=== PATIENT | female | born 1960 | race Caucasian/White ===

== ENCOUNTER 2024-10-31 19:53 | Observation (INO) | payer OTHER, SELFPAY ==
[2024-10-31 15:28] VITALS: BP 137/92
[2024-10-31 15:50] LABS: % Basophils 0.6 % (0-2); % Eosinophils 2.5 % (0-6); % Immature Granulocytes 0.3 % (0-0.5); % Monocytes 7.1 % (1.7-9.3); % Neutrophils 58.5 % (42.2-75.2); Absolute Basophils 0.1 10^3/uL (0-0.2); Absolute Eosinophils 0.4 10^3/uL (0-0.7); Absolute Lymphocytes 4.5 10^3/uL (1.2-3.4); Absolute Neutrophils 8.5 10^3/uL (1.4-6.5); Hematocrit 41.5 % (37.0-47.0); Hemoglobin 14.5 g/dL (12.0-16.0); Mean Corp Hgb Conc. 34.9 g/dL (33.0-37.0); Mean Corpuscular Hgb 29.2 pg (27.0-31.0); Mean Corpuscular Volume 83.7 fL (81.0-99.0); Mean Platelet Volume 10.1 fL (7.4-10.4); Nucleated Red Blood Cells % 0 %; Platelet Count 304 10^3/uL (130-400); Red Blood Cell Count 4.96 10^6/uL (4.20-5.40); Red Cell Dist. Width 12.3 % (11.5-14.5); White Blood Cell Count 14.6 10^3/uL (4.8-10.8)
[2024-10-31 16:05] LABS: ALT (SGPT) 22 U/L (0-35); AST (SGOT) 26 U/L (14-36); Alkaline Phosphatase 68 U/L (38-126); Blood Urea Nitrogen 25 mg/dl (7-17); Calcium 9.9 mg/dl (8.4-10.2); Carbon Dioxide 21 mmol/L (22-30); Chloride 106 mmol/L (98-107); Glucose 122 mg/dl (70-99); Potassium 4.5 mmol/L (3.5-5.1); Sodium 139 mmol/L (135-145); Total Bilirubin 0.6 mg/dl (0.2-1.3); Total Protein 7.9 g/dl (6.3-8.2); eGFR > 60.00
[2024-10-31 18:01] VITALS: BMI 31.9
[2024-10-31 18:04] VITALS: BP 155/75
--- NOTE | 2024-10-31 18:48 | ED.GENMED ---
History of Present Illness
General
Chief Complaint: Visual Problem
Source: patient
Exam Limitations: none
Time Seen by Provider: 10/31/24 17:49
Nursing documentation reviewed up to this point in time: agreed with
History of Present Illness
History of Present Illness:
The patient is a 64-year-old female who presented with a visual disturbance. She reported that while reading late at night, she suddenly observed a 'weird spot' in her vision. The symptom onset was described to occur around midnight. Initially
self-managed with Restasis eye drops due to a history of dry eyes, there was no significant relief over the weekend. The patient noticed a persistent carrero spot in her vision, prompting a visit to the human service coordinator, Dr. Perez, who identified a
need for further evaluation by a retina specialist. The patient subsequently consulted with Dr. Clifford Perdue, who conducted comprehensive testing. Dr. Perdue explained that while typically two primary arteries supply the retina, some
individuals, like the patient, have a third, thinner artery. In this artery, a small blockage or plaque was identified, possibly indicative of an 'eye stroke;' however, this was not deemed to immediately endanger her sight. Further investigation was
advised to rule out any larger systemic issues.
Past History
Past History
ED Past Medical History: None
ED Past Surgical History:
Social History
Tobacco: Non-smoker
Living: with family
Review of Systems
Review of Systems
Allergies reviewed?: Yes
All Other Systems: ROS reviewed and negative except as documented in HPI and ROS
Phy Exam
Physical Exam
Physical Exam:
GENERAL: Alert , in no apparent distress
EYE: pupils equal and reactive
NECK: Supple, no significant adenopathy.
ENT: o/p clr, mmm.
CARDIAC: Regular rate and rhythm .
LUNGS: Clear breath sounds bilaterally, no acute respiratory distress, no wheezes/rales/rhonchi
ABDOMEN: Soft, without focal tenderness, no r/g, no cvat
NEUROLOGICAL: Alert and oriented, no focal neuro deficits
SKIN: Warm and dry, skin intact.
MUSCULOSKELETAL: No edema, well perfused.
PSYCH: Normal and appropriate interaction.
5-5 upper and lower extremity strength normal sensation with palpating bilaterally normal finger-nose evaluation no pronator drift walk with steady gait
Course
Orders/Labs/Results
Orders:
Orders
10/31/24 15:36
EKG [Electrocardiogram (*1)] Stat
Reason for Study: TIA/Stroke
EKG- Treatment ONCE
10/31/24 15:42
Alcohol Stat
CBC/With Diff [Complete Blood Count/With Diff] Stat
Comprehensive Metabolic Panel Stat
Erythrocyte Sed Rate Stat
Comment: ADD ON
10/31/24 16:43
CT Head W/o Iv Contrast Stat
Comment:
Reason For Exam: vision change
10/31/24 19:03
CT Head & Neck Angio W/wo IV Urgent
Comment:
Reason For Exam: Possible retinal artery stroke
10/31/24 19:18
Aspirin 325 mg PO NOW STA
10/31/24 19:26
Admit/Transfer Patient As Directed
Co-Sign Provider:
Level of Care: Observation services
Assign to:: Medical/Surgical
Physician / Group: Amparo
Diagnosis: L. Branched Retinal artery occusion
Code Status As Directed
Resuscitation Status: Full Code
PRN Pain Medication Management As Directed
May give lesser potent ordered pain med per pt: Yes
preference::
Protocol:: Medication orders for pain may be administered in a
manner that supports deferring to patient preference
when the pt is:
- Requesting an ordered lesser potent pain medication.
Least to most potent pain medications are defined
as: acetaminophen < NSAID < tramadol < opioids
(morphine, oxycodone, hydromorphone).
- Requesting a lesser dose of the same medication IF
ORDERED.
- Requesting a less intrusive route of administration
if both routes are prescribed by the provider (PO <
IV).
10/31/24 19:29
Add On- LAB Stat
Tests Added?: ESR, A1c
10/31/24 19:43
PRN Pain Medication Management As Directed
May give lesser potent ordered pain med per pt: Yes
preference::
Protocol:: Medication orders for pain may be administered in a
manner that supports deferring to patient preference
when the pt is:
- Requesting an ordered lesser potent pain medication.
Least to most potent pain medications are defined
as: acetaminophen < NSAID < tramadol < opioids
(morphine, oxycodone, hydromorphone).
- Requesting a lesser dose of the same medication IF
ORDERED.
- Requesting a less intrusive route of administration
if both routes are prescribed by the provider (PO <
IV).
10/31/24 19:45
Lipid Profile [Cardiovascular Evaluation] Urgent
11/03/24 11:00
DC Protocol for Telemetry ONCE
Abnormal Lab Results
10/31/24
15:42
WBC 14.6 H 10^3/uL
(4.8-10.8)
Absolute Neuts (auto) 8.5 H 10^3/uL
(1.4-6.5)
Absolute Lymphs (auto) 4.5 H 10^3/uL
(1.2-3.4)
Absolute Monos (auto) 1.0 H 10^3/uL
(0.1-0.6)
Carbon Dioxide 21 L mmol/L
(22-30)
BUN 25 H mg/dl
(7-17)
Glucose 122 H mg/dl
(70-99)
10/31/24 15:42
10/31/24 15:42
Vital Signs
Initial and Last Documented VS:
Initial Vital Signs
Temp Pulse Resp BP Pulse Ox
98.9 F 95 18 137/92 97
10/31/24 15:28 10/31/24 15:28 10/31/24 15:28 10/31/24 15:28 10/31/24 15:28
Last Documented Vital Signs
Temp Pulse Resp BP Pulse Ox
98.6 F 77 20 155/75 98
10/31/24 18:04 10/31/24 18:04 10/31/24 18:04 10/31/24 18:04 10/31/24 18:04
MDM/Problems Addressed
MDM/Problems Addressed:
Consultation with the neurology team to determine further testing, including potential angiogram or ultrasound, to assess for any cerebrovascular risks and rule out a stroke.
*Critical Care Note
Total Time (30-74mins, 75-104mins- exclusive of procedures): Not Applicable
Update Note
Update Note:
10/31/24 - 19:[address] results are normal. However, further testing is necessary, including a CT angiogram and additional blood work, to evaluate any potential risks. The patient will likely be admitted to the hospital tonight for these tests. Neuro will
review the case tomorrow morning to determine safety for discharge and provide further recommendations.
ED Attending Note
-
Portions of this chart may have been created with voice recognition software.� Occasional wrong word or��sound alike� substitutions may have occurred due to the inherent limitations of voice recognition software.
Discharge Plan
Departure
Patient Disposition: Admit
Date of Disposition: 10/31/24
Time of Disposition: 19:55
Admit to: Telemetry
Admit to doctor: Amparo
Presentation/result/management discussed w/ accepting MD/DO: Hospitalist
Patient with high blood pressure during this ER visit?: No
Condition: Good
Covid-19: Not Applicable
Discharge Problem:
Acute retinal artery occlusion
Prescriptions:
No Action
lisinopril 20 mg Tablet
20 mg PO DAILY
loperamide 2 mg Tablet
2 mg PO DAILYPRN PRN (Reason: diarrhea)
cyanocobalamin (vitamin B-12) 1,000 mcg Tablet
1,000 mcg PO DAILY
potassium 99 mg Tablet
99 mg PO DAILY
ascorbic acid (vitamin C) [Vitamin C] 500 mg Tablet
500 mg PO DAILY
pyridoxine (vitamin B6) 50 mg Tablet
50 mg PO DAILY
cholecalciferol (vitamin D3) [Vitamin D3] 25 mcg (1,000 unit) Tablet
25 mcg PO DAILY
apple cider vinegar 300 mg Tablet
300 mg PO DAILY
[place] 3 Fish Oil 684-1,200 mg Capsule,Delayed Release(Dr/Ec)
1 cap PO DAILY
coQ10 (ubiquinol) 100 mg Capsule
100 mg PO DAILY
Referrals:
NONE,* [Family Provider, Internal Medicine]
Interventions
Interventions:
*Risk Screen - Suicide Last Done: 10/31/24 15:33
*General Assessment Last Done: 10/31/24 18:04
*Neglect/Abuse Screening Last Done: 10/31/24 15:33
*ED- Fall Risk Assessment Last Done: 10/31/24 18:04
*ED COVID-19 Vaccine History Last Done: 10/31/24 18:04
ED- Neurological Assessment Last Done: 10/31/24 18:04
ED-EENT Assessment Last Done: 10/31/24 18:04
ED Swallowing Screen Last Done: 10/31/24 18:04
Discharge Date and Time
Print Language: CHINESE
[2024-10-31] MEDS: ASPIRIN 325 MG PO (19:21)
--- NOTE | 2024-10-31 19:22 | HPS.HSE ---
Family Physician
-
Family Physician: * NONE
Chief Complaint
-
Left eye vision loss
History of Present Illness
This is a 64-year-old female with past medical history significant for hypertension, diet-controlled diabetes who presents to the emergency department from ophthalmology clinic for concern for retinal artery occlusion of the left eye.
Patient reports acute onset of small vision loss in the left eye slightly left of center. She described this as a carrero spot. She had no eye pain at that time. She denied having any headache. She had no other symptoms including double vision,
blurry vision, facial droop, aphasia, numbness tingling or weakness. This persisted and she had a visit to her street light cleaner on Tuesday. There there was finding concerning for vascular abnormalities and she was sent to retinal specialist. The
retinal specialist diagnosed a branch retinal artery occlusion (Hollenhorst plaque). Patient stated that Dysport has not changed and there has been no other visual on oral neurological deficits since.
In the emergency department patient was afebrile. Blood pressure was 155 with a pulse rate of 77 satting 98% on room air. ECG shows normal sinus rhythm without any acute ST or T wave changes. Head CT without any acute intracranial process.
Data white count 14.6 otherwise CBC was unremarkable. Electrolytes are within normal limits. BUN/creatinine also within normal limits.
Medical History
Past Medical History
Past Medical History: Reports HTN
Past Surgical History: Reports None
Social History
Tobacco: Non-smoker
Alcohol: None
Drug: None
Personal:
Living: With Family
Employment: Not Employed
Family History
Family History: Not pertinent
Allergies / Home Medications
Allergies reflects when Allergies were last updated in [facility].
Home Medications with original date entered in [facility]
Allergy/Medication List:
Allergies
Allergy/AdvReac Type Severity Reaction Status Date / Time
No Known Allergies Allergy Verified 10/31/24 15:32
Home Medications
lisinopril 10 mg tablet 10 mg PO DAILY 10/31/24
Review of Systems
-
History Source: Patient
Constitutional: Reports No Symptoms
EENT: Reports No Symptoms
Respiratory: Reports No Symptoms
Cardiac: Reports No Symptoms
Abdomen/GI: Reports No Symptoms
: Reports No Symptoms
Musculoskeletal: Reports No Symptoms
Skin: Reports No Symptoms
Neurological: Reports Other (Left eye blurry vision)
Endocrine: Reports No Symptoms
Hematologic/Lymphatic: Reports No Symptoms
Psych: Reports No Symptoms
Physical Exam
Vital Signs
Vital Signs
Temp Pulse Resp BP Pulse Ox
98.6 F 77 20 155/75 98
10/31/24 18:04 10/31/24 18:04 10/31/24 18:04 10/31/24 18:04 10/31/24 18:04
Physical Exam
General: Well Developed, Well Nourished and No Apparent Distress
HEENT: NormoCephalic, Moist mucous membranes and Atraumatic
Respiratory: Clear
Cardiac: S1/S2 and Regular Rhythm; No Murmur or Rub
GI: Soft, Non Tender, Non Distended and Normal Bowel Sounds; No Organomegaly
Rectal: Deferred by Provider
Musculoskeletal: No Clubbing, No Cyanosis and No Edema
Skin: No Rash
Neuro: Nonfocal/grossly intact
Laboratory Results
-
10/31/24 15:42
10/31/24 15:42
Laboratory Results
Total Bilirubin 0.6 mg/dl (0.2-1.3) 10/31/24 15:42
AST 26 U/L (14-36) 10/31/24 15:42
ALT 22 U/L (0-35) 10/31/24 15:42
Alkaline Phosphatase 68 U/L (38-126) 10/31/24 15:42
Data Reviewed
-
CT Scan: Report Reviewed by me
Medical Tests (Nuc Med, Echo, EKG etc): Image Personally Visualized and interpreted
Lab Data: Labs Reviewed by me
Old Records: Reviewed
Impression/Plan
-
IMPRESSION:
64-year-old female with past medical history of hypertension and diet-controlled diabetes presents to the emergency department from ophthalmology clinic for a left eye small carrero scotoma that is slightly left of center that started on Tuesday about 5
days ago. She was diagnosed with branch retinal artery occlusion in ophthalmology/retinal specialist clinic and sent to the emergency department for complete workup.
PLAN:
Branch retinal artery occlusion-minimal vision loss, no focal logical deficits. Onset was 5 days ago. Stable vital signs, stable neurological exam at this time.
- admit to med/surg observation
- CT angio head/neck
- lipid panel, a1c, esr
- ASA started continue 81 daily
- Moderate dose statin
- neurology consulted and following
DM II - diet controlled
- sliding scale achs
HTN
- continue lisinopril 20 daily
DVT PPX - scd
Code status - Full Code
[2024-10-31 19:42] LABS: Erythrocyte Sed Rate 12 mm/hour (0-20)
[2024-10-31 20:05] LABS: Alcohol None Detected
[2024-10-31 20:14] LABS: HDL Cholesterol 44 mg/dl; LDL Cholesterol, Calculated 164 mg/dl; Total Cholesterol 242 mg/dl (50-199); Triglyceride 172 mg/dl (10-149); Very Low Density Lipoprotein 34 mg/dl (0-30)
[2024-10-31 21:14] LABS: Glucose - Point of Care 124 mg/dl (70-99)
[2024-10-31 21:43] VITALS: BP 161/86; BMI 34.1
[2024-10-31 23:47] VITALS: BP 152/52
--- NOTE | 2024-11-01 03:37 | PTCARENOTE ---
2100 received pt from ED, pt ambulated to bed, NIH 1 for c/o vision decreased in lt eye r/t 'carrero spot' near center of vision. admission assessment completed, poc reviewed. pt without questions.
--- NOTE | 2024-11-01 04:05 | PTCARENOTE ---
Verbal report received by the off going nurse. No change in assessment. AAOx3, NIH 1. call schulz is within reach. Plan of care ongoing.
[2024-11-01 07:40] VITALS: BP 158/71
[2024-11-01 07:46] LABS: Glucose - Point of Care 125 mg/dl (70-99)
[2024-11-01 07:47] LABS: Hematocrit 38.7 % (37.0-47.0); Hemoglobin 13.7 g/dL (12.0-16.0); Mean Corp Hgb Conc. 35.4 g/dL (33.0-37.0); Mean Corpuscular Hgb 29.8 pg (27.0-31.0); Mean Corpuscular Volume 84.3 fL (81.0-99.0); Mean Platelet Volume 10.2 fL (7.4-10.4); Platelet Count 293 10^3/uL (130-400); Red Blood Cell Count 4.59 10^6/uL (4.20-5.40); Red Cell Dist. Width 12.2 % (11.5-14.5); White Blood Cell Count 16.2 10^3/uL (4.8-10.8)
[2024-11-01 08:41] LABS: Erythrocyte Sed Rate 20 mm/hour (0-20)
[2024-11-01] MEDS: VITAMIN B-12 1000 MCG PO (08:41)
[2024-11-01] MEDS: ASPIR LOW (ENTERIC COATED) 81 MG PO (08:41)
[2024-11-01] MEDS: ZESTRIL 20 MG PO (08:42)
[2024-11-01 08:44] LABS: TSH Reflex To Free T4 1.46 uIU/ml (0.47-4.68)
--- NOTE | 2024-11-01 08:44 | CON.NEURO4 ---
Addendum entered and electronically signed by Luis Garcia MD 11/01/24 12:47:
Studies reviewed.
I have personally examined the patient. I reviewed and agree with the BRICK BURNER's Note.
My addenda:
Awake, alert, interactive. No acute distress.
Speech intact.
Follows 2-step requests w/o difficulty. No tremor.
Extra-ocular movements grossly intact.
Facial movements full and symmetric. Hearing intact to normal conversational volume.
Normal UE movements bilaterally.
Neck: full ROM.
Chest: no dyspnea
Heart: no JVD
Ext: (-) Clubbing, (-) Cyanosis, (-) Edema
IMPRESSIONS/RECOMMENDATIONS:
Abrupt onset of left eye visual change
Most likely due to branch retinal artery occlusion
lifelong aspirin
stroke management treatments per educational packet
replace Atorvastatin with Rosuvastatin 40 mg daily due to intolerance to Atorvastatin in the past
D/W patient
All questions answered.
Will continue to follow as needed.
Original Note:
Documented by User: Viji Pérez NP 11/01/24 09:18
Consultation - Neurology 4
-
CONSULTING PHYSICIAN: Luis Garcia MD
REFERRING PHYSICIAN: Hospitalists/Dr. Sanchez
DICTATED BY: BAM Steele
DATE/TIME OF REQUEST: 10/31/24
DATE/TIME OF CONSULTATION: 11/01/24
Reason for Consultation: Left eye visual disturbance
History of Present Illness:
This is a 64-year-old left-handed female who has presented to the hospital with report of a left eye visual disturbance. Patient reports that two nights ago no 10/30/24 she was reading when she suddenly noticed a tiny carrero spot in her left eye
central vision. She used Restasis drops thinking it may be a dry eye issue but the spot did not resolve. She went to her director part Dr. Perez, who had a retina specialist Dr. Clifford Perdue evaluate her. Dr. Perdue noted a small
plaque/blockage in one of the arteries feeding her retina. She was referred to the ER for further evaluation. CT head and CTA head/neck were obtained on arrival and are negative for any acute abnormalities. Her blood pressure has been notably
elevated up to 161/86 during hospitalization. Today (11/01/24), she reports no change in her symptoms. She is still able to see well out of her left eye, the tiny carrero spot doesn't obstruct a large portion of her vision. She denies any headache,
dizziness, speech/swallow difficulty, numbness, and weakness. She denies any history of TIA, stroke, or events similar to this in the past and she was not taking any blood-thinning medications.
Past Medical History: Denies
Surgical History:
Family History: Reviewed and noncontributory.
Social History: Denies tobacco, alcohol, and illicit drug use.
Allergies: No known allergies.
Home Medications: See below.
Review of Symptoms:
Patient denies any fever, headache, chest pain, shortness of breath, GI or symptoms.
�Per the HPI.�All systems are reviewed negative except above.
Physical Exam:
The patient is afebrile, abdomen is nondistended, breathing is unlabored, skin is warm and dry, no edema.
NIH Stroke Scale:
I performed the NIH stroke scale on the patient on 11/01/24 at 0845. The patient scored 0 points on the NIH stroke scale assessment, which were assigned as follows: See below.
Neurologic Examination:
The patient is awake, alert and oriented x 3. She is able to follow commands and answer questions appropriately. There is no aphasia or dysarthria. On cranial nerve assessment, pupils are 3 mm bilateral, round and reactive to light and
accommodation. No APD. Visual beltre are full. Extraocular movements are intact. Facial sensations are intact and bilaterally symmetrical, there is no facial asymmetry. Hearing is intact bilaterally to normal conversation volume. Tongue palate and
uvula are midline. Sternocleidomastoid strengths are full bilaterally. Motor strengths are 5/5 bilateral upper and lower extremities on medical research [place] scale. There is no drift or involuntary movement noted. Deep tendon reflexes are 2+
bilateral upper and lower extremities and Babinski is absent bilaterally. There was no extinction noted on double simultaneous stimulation. Coordination is intact by finger to nose bilaterally.
Lab Results: See below.
Neuro Imaging:
1. CT Head 10/31/24: No acute intracranial abnormality.
2. CTA Head/Neck 10/31/24: No significant vascular occlusion, aneurysm or dissection.
Differentials for the patient's presentation include:
1. Left eye branch retinal artery occlusion likely producing left eye visual disturbance.
2. Low concern for structural brain abnormality producing symptoms.
3. Hypertension.
4. Hyperlipidemia.
Patient has the following risk factors for their symptoms: HTN, HLD
Recommendations:
-Continue newly added aspirin 81mg daily, indefinitely.
-Do not see a role for further neurological imaging at this time.
-Goal normotension.
-LDL goal <70. LDL is 164. Continue newly initiated atorvastatin 40mg daily.
-Provide patient with a stroke education packet.
-Patient should continue to follow with ophthalmology as an outpatient.
Discussed patient care with: Dr. Garcia, the patient
Vital Signs and Labs
-
Vital Signs and Labs:
Vital Signs
Temp Pulse Resp BP Pulse Ox
97.5 F 73 16 158/71 96
11/01/24 07:40 11/01/24 07:40 11/01/24 07:40 11/01/24 08:42 11/01/24 07:40
Lab Results
11/01/24 07:23
10/31/24 15:42
Sodium 139 mmol/L (135-145) 10/31/24 15:42
Potassium 4.5 mmol/L (3.5-5.1) 10/31/24 15:42
BUN 25 mg/dl (7-17) H 10/31/24 15:42
Glucose 122 mg/dl (70-99) H 10/31/24 15:42
Calcium 9.9 mg/dl (8.4-10.2) 10/31/24 15:42
LDL Cholesterol, Calc 164 mg/dl 10/31/24 19:45
Medications
-
Active Medications
Generic Name Dose Route Start Last Admin
Trade Name Freq PRN Reason Stop Dose Admin
Acetaminophen 650 mg 10/31/24 20:52
Acetaminophen 325 Mg Tablet PO 11/28/24 20:51
Q4HPRN PRN
mild pain/REDDY/temp> 100.4F
Aspirin 81 mg 11/01/24 08:00 11/01/24 08:41
Aspirin 81 Mg (Enteric Coated) Tablet PO 11/29/24 07:59 81 mg
DAILY STEPHANIE Administration
Bisacodyl 10 mg 10/31/24 20:52
Bisacodyl 10 Mg Rectal Suppository RECTAL 11/28/24 20:51
[id number] PRN
constipation
Cyanocobalamin 1,000 mcg 11/01/24 08:00 11/01/24 08:41
Cyanocobalamin 1,000 Mcg Tablet PO 11/29/24 07:59 1,000 mcg
DAILY STEPHANIE Administration
Dextrose 12.5 grams 10/31/24 21:00
Dextrose 50% (0.5 Grams/Ml) 50 Ml Syringe IV 11/28/24 20:59
[id number] PRN
hypoglycemia
Protocol
Glucagon 1 mg 10/31/24 21:00
Glucagon 1 Mg Vial IM 11/28/24 20:59
PRN PRN
hypoglycemia - no IV access
Protocol
Insulin Aspart 0 units 11/01/24 07:30 11/01/24 08:36
Insulin Aspart Low Resistance 300 Units/3 Ml Pen.Injctr SC 11/29/24 07:29 Not Given
AC STEPHANIE
Protocol
Lisinopril 20 mg 11/01/24 08:00 11/01/24 08:42
Lisinopril 20 Mg Tablet PO 11/29/24 07:59 20 mg
DAILY STEPHANIE Administration
Loperamide HCl 2 mg 10/31/24 20:58
Loperamide 2 Mg Capsule PO 11/28/24 20:57
DAILYPRN PRN
diarrhea
Ondansetron HCl 4 mg 10/31/24 20:52
Ondansetron 4 Mg/2 Ml Vial IV 11/28/24 20:51
Q6HPRN PRN
nausea and vomiting
Polyethylene Glycol 17 grams 10/31/24 20:52
Polyethylene Glycol Powder 17 Grams Packet PO 11/28/24 20:51
DAILYPRN PRN
constipation
Rosuvastatin Calcium 40 mg 11/01/24 18:00
Rosuvastatin (Crestor) 40 Mg Tablet PO 11/29/24 17:59
QPM STEPHANIE
Senna/Docusate Sodium 1 tablet 10/31/24 20:52
Docusate W/Senna (Magaly-Colace) Tablet PO 11/28/24 20:51
BIDPRN PRN
constipation
Sodium Chloride 0 flush 10/31/24 21:00
Sodium Chloride 0.9% (Flush) Syringe IV 11/28/24 20:59
PER PROTOCOL STEPHANIE
Home Medications
�Medication �Instructions �Recorded
apple cider vinegar 300 mg tablet 300 mg PO DAILY 10/31/24
ascorbic acid (vitamin C) 500 mg 500 mg PO DAILY 10/31/24
tablet (Vitamin C)
cholecalciferol (vitamin D3) 25 25 mcg PO DAILY 10/31/24
mcg (1,000 unit) tablet (Vitamin
D3)
coQ10 (ubiquinol) 100 mg capsule 100 mg PO DAILY 10/31/24
cyanocobalamin (vitamin B-12) 1,000 mcg PO DAILY 10/31/24
1,000 mcg tablet
lisinopril 20 mg tablet 20 mg PO DAILY 10/31/24
loperamide 2 mg tablet 2 mg PO DAILYPRN PRN diarrhea 10/31/24
omega-3 fatty acids-fish oil 684 1 cap PO DAILY 10/31/24
mg-1,200 mg capsule,delayed release
potassium 99 mg tablet 99 mg PO DAILY 10/31/24
pyridoxine (vitamin B6) 50 mg 50 mg PO DAILY 10/31/24
tablet
NIH Stroke Score
Subsequent NIH Scale
Date of Subsequent NIH Scale: 11/01/24
Time of Subsequent NIH Scale: 08:45
NIH Stroke Score
Level of Consciousness: 0 - Alert
LOC Questions: 0-Answers both correctly
LOC Commands: 0-Performs both correctly
Best Horizontal Gaze: 0-Normal
Visual Beltre: 0=Normal, no visual loss
Facial Palsy: 0=Normal, symmetrical
Motor - Right Arm: 0=No drift 10 seconds
Motor - Left Arm: 0=No drift 10 seconds
Motor - Right Le-No drift 5 seconds
Motor - Left Le-No drift 5 seconds
Limb Ataxia: 0-Absent
Sensation: 0-Normal
Best Language: 0-No aphasia
Dysarthria: 0-Normal
Extinction and Inattention: 0-No abnormality
NIH Total Score:: 0
Modified [place] (mRS) Score
Modified [place] Scale (mRS): No significant disability. Able to carry out usual activities.
Score: 1

Documented by User: Luis Garcia MD 11/01/24 12:45
NIH Stroke Score
NIH Stroke Score
NIH Total Score:: 0
Modified [place] (mRS) Score
Score: 1
[2024-11-01 09:22] LABS: Glycohemoglobin (HgbA1c) 6.3 % (4.0-5.6)
[2024-11-01 09:37] LABS: % Basophils 0.7 % (0-2); % Eosinophils 1.3 % (0-6); % Immature Granulocytes 0.3 % (0-0.5); % Lymphocytes 25.7 % (20.5-51.1); % Monocytes 6.1 % (1.7-9.3); % Neutrophils 65.9 % (42.2-75.2); Absolute Basophils 0.1 10^3/uL (0-0.2); Absolute Eosinophils 0.2 10^3/uL (0-0.7); Absolute Immature Granulocytes 0.1 10^3/uL (0-0.05); Absolute Lymphocytes 4.2 10^3/uL (1.2-3.4); Absolute Neutrophils 10.7 10^3/uL (1.4-6.5); Nucleated Red Blood Cells % 0 %
--- NOTE | 2024-11-01 10:31 | W.PN.HOSP.TC ---
Today's Communication/Plan
-
DC
Assessment / Plan
Assessment / Plan
64yo F witbh PMHX of HLD, HTN, atopic d/o sent by director of personnel 2/2 L BRAO. Patient developed L vision field deficit around 48h before admission. CTA head in ED without LVO or carotid stenosis, neurologist suggested statin and ASA. Patient most
likely has poorly controlled ASD with high LDL that caused l BRAO. Outpatient cardiology for holter and Echo advised. No additional imaging recommended by neurologist
A/P:
#L BRAO
Neuro consult: ASA, statin
TSH wnl
ESR WNL
#Mild leukocytosis
No respirastory, no urinary symptoms
No abdominal pain
No fever
No left shift on
No direct indication for Abx at this time
#HLD
see above
#Essential HTN
counseled on BP measurment every morning and follow up with PCP as current BP slightly elevated, but unclear if 2/2 white coat or usual at home
#PreDM
low carb diet
DVT ppx on SCDs
Full code
I have spent at least 58min reviewing chart, test results, communication with consultants and providing direct patient care
Anticipated Discharge: Today
Subjective/Interval History
-
Date of Service: November 01, 2024
Objective Data
-
Labs:
Laboratory Results
11/01/24
07:23
WBC 16.2 H
Hgb 13.7
Hct 38.7
Plt Count 293
Vital Signs:
Vital Signs
Temp Pulse Resp BP Pulse Ox
97.5 F 73 16 158/71 96
11/01/24 07:40 11/01/24 07:40 11/01/24 07:40 11/01/24 08:42 11/01/24 07:40
I&O
10/31/24 11/01/24 11/02/24
06:59 06:59 06:59
Intake Total 480 / 480
Balance 480 / 480
Review of Systems
-
History Source: Patient
All other systems: Reviewed and negative
Physical Exam
-
General: No Apparent Distress
HEENT: Normocephalic
Respiratory: Clear to Auscultation
GI: Soft, Nontender and Nondistended
Skin: Warm
Neuro: Awake, Alert, Oriented and AO x 3
Psych: Calm
--- NOTE | 2024-11-01 10:36 | W.DCSUMMARY ---
Discharge Summary
Discharge Data
Date of Admission: 10/31/24
Date of Discharge: 11/01/24
-
Pending Results: No
Hospital Course
64yo F witbh PMHX of HLD, HTN, atopic d/o sent by ophhthalmologist 2/2 L BRAO. Patient developed L vision field deficit around 48h before admisison. CTA head in ED without LVO or carotid stenosis, neurologist suggested statin and ASA. Patient most
likely haspoorly controlled ASD with high LDL that caused l BRAO. Outpatient cardiology for holter and Echo advised. No additional imaging recommended by neurologist
Medically stable to be d/c home with cardiology referral and Rx for Echo as recommended by neurologist
I have spent at least 58min reviewing chart, test results, communication with consultants and providing direct patient care
Patient was managed for:
#L BRAO
#Mild leukocytosis
#HLD
#Essential HTN
#PreDM
Discharge Plan
-
Patient Disposition: Home (Routine Discharge)
Discharge Diagnosis/Procedures: L BRAO
Diet: Low Cholesterol and Diabetic, Carb Controlled
Activity: As tolerated
Driving Restrictions: As prior to admission
Referrals:
Chepe Taylor MD [Active, Ophthalmology] - in one to two weeks
Haider Ferreira MD [Active, Cardiology] - in one to two weeks
Referral Note: For Holter, Echo
NONE,* [Family Provider, Internal Medicine]
Prescriptions:
New
rosuvastatin 40 mg tablet
40 mg PO DAILY Qty: 30 0RF
aspirin 81 mg Tablet,Delayed Release (Dr/Ec)
81 mg PO DAILY Qty: 30 0RF
Continued
lisinopril 20 mg Tablet
20 mg PO DAILY
loperamide 2 mg Tablet
2 mg PO DAILYPRN PRN (Reason: diarrhea)
cyanocobalamin (vitamin B-12) 1,000 mcg Tablet
1,000 mcg PO DAILY
cholecalciferol (vitamin D3) [Vitamin D3] 25 mcg (1,000 unit) Tablet
25 mcg PO DAILY
omega-3 fatty acids-fish oil 684-1,200 mg Capsule,Delayed Release(Dr/Ec)
1 cap PO DAILY
Discontinued
potassium 99 mg Tablet
99 mg PO DAILY
ascorbic acid (vitamin C) [Vitamin C] 500 mg Tablet
500 mg PO DAILY
pyridoxine (vitamin B6) 50 mg Tablet
50 mg PO DAILY
apple cider vinegar 300 mg Tablet
300 mg PO DAILY
coQ10 (ubiquinol) 100 mg Capsule
100 mg PO DAILY
Discharge Orders:
Discharge Patient (As Directed); Ordered 11/01/24
Ordered By: Jose Elias Novak
Discharge Date and Time
Print Language: ARMENIAN
--- NOTE | 2024-11-01 11:10 | CM ---
Patient for d/c today. Met w/ patient bedside, initial assessment completed. Patient is a 64-year-old female with past medical history significant for hypertension, diet-controlled diabetes who presents to the emergency department from ophthalmology
clinic for concern for retinal artery occlusion of the left eye.
Patient resides partially alone in a 2 story split level home, no steps to enter, 5 steps to the second level to bedroom and bathroom. Patient's spouse splits time at patient's home and their second home in [place], [place]. Patient is home alone
during the week. Patient is independent in all areas, no DME. No SNF/HC hx reported.
Address, point of contact and insurance verified. Patient requested for address to be updated, notified admissions of this update
PCP: Patient has no PCP at this time as patient recently moved and has been splitting providers and plans to establish care
[facility]
Patient admitted obs. OOBS form verbally reviewed, copy provided, copy on chart
Per patient, due to her spouse being far away, she plans to take an Uber home today
Plan: Home today, no needs
--- NOTE | 2024-11-01 11:28 | PTCARENOTE ---
pt refusing blood sugar check
== END 2024-11-01 12:37 | disposition home or self-care (01) ==
LOC: 4 EAST ACU 19:53
PROVIDERS: Emergency Medicine; Physician Assistant; ADMITTING PHYSICIAN Internal Medicine; ATTENDING PHYSICIAN Internal Medicine; CONSULT PHYSICIAN Psychiatry & Neurology Neurology; EMERGENCY PHYSICIAN Emergency Medicine
DX: H34.232 Retinal artery branch occlusion, left eye (principal); H53.9 Unspecified visual disturbance; H54.62 Unqualified visual loss, left eye, normal vision right eye; E11.9 Type 2 diabetes mellitus without complications; I10 Essential (primary) hypertension; Z79.899 Other long term (current) drug therapy; Z79.82 Long term (current) use of aspirin; E78.5 Hyperlipidemia, unspecified
CPT/HCPCS: 70450; 70496; 70498; 80053; 80061; 82077; 82962; 83036; 84443; 85025; 85652; 86140; 93005; 99285; G0378; Q9967